=== PATIENT | male | born 1940 | race Caucasian/White ===

== ENCOUNTER 2016-12-19 20:33 | Inpatient (IN) | payer MEDICARE, OTHER ==
[~2016-12-19] VITALS: Ht 172.7 cm; Wt 68.3 kg
[~2016-12-19 20:33] MED LIST: ALPR1TAB3 PO; FOLI1TAB PO; HYDRO25 PO; MIRT30TA PO
[2016-12-19 23:34] VITALS: BP 125/63; PULSE 59; RESP 20; TEMP 98.7
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
[2016-12-20] VITALS (10 sets, daily range): BP systolic 119–165; BP diastolic 66–93; PULSE 59–109; RESP 18–21; TEMP 96.2–98.8; O2SAT 85–98
[2016-12-20] MEDS ORDERED: AZTREONAM INJ 2,000 MG in SODIUM CHLORIDE 0.9% INJ 100 ML IV STA (00:02)
[2016-12-20] MEDS ORDERED: AZITHROMYCIN INJ 500 MG in SODIUM CHLOR 0.9% 250 ML INJ 250 ML IV STA (00:02)
[2016-12-20 00:07] LABS: AUTOMATED NEUTROPHIL # 1.6 TH/MM3 (1.8-7.7); BASOPHIL % 0.2 % (0.0-2.0); EOSINOPHIL # 0.1 TH/MM3 (0-0.4); EOSINOPHIL % 1.7 % (0.0-4.0); HEMATOCRIT 32.2 % (39.0-51.0); HEMO FLAGS DIFF FINAL; LYMPH % 31.4 % (9.0-44.0); MEAN CELL VOLUME 92.8 FL (80.0-100.0); MEAN CORPUSCULAR HEMOGLOBIN 31.1 PG (27.0-34.0); MEAN CORPUSCULAR HGB CONC 33.5 % (32.0-36.0); MONO % 14.7 % (0.0-8.0); PLATELET COUNT 152 TH/MM3 (150-450); RED BLOOD COUNT 3.47 MIL/MM3 (4.50-5.90); RED CELL DISTRIBUTION WIDTH 15.7 % (11.6-17.2); WHITE BLOOD COUNT 3.1 TH/MM3 (4.0-11.0)
[2016-12-20] MEDS ORDERED: SODIUM CHLORIDE 0.9% FLUSH 10 ML FLUSH IVF PRN ×2 (00:15→02:30)
[2016-12-20] MEDS ORDERED: methylPREDNISolone SOD SUCC 125 MG/2 ML VIAL IVP ONE (00:15)
[2016-12-20] MEDS ORDERED: SODIUM CHLORID 0.9% 500 ML INJ 500 ML IV ONE (00:15)
[2016-12-20] MEDS: RESP: ALBUTEROL 2.5 MG/IPRATROPIUM 0.5 MG NEB (SCH) INH ×6 (00:16→21:53)
[2016-12-20 00:17] LABS: APTT (PATIENT) 33.6 SEC (24.3-30.1); INTERNATIONAL NORMALIZED RATIO 1.1 RATIO; PROTHROMBIN TIME - PATIENT 12.7 SEC (9.8-11.6)
[2016-12-20 00:21] LABS: ANION GAP 3 MEQ/L (5-15); AST (GOT) 23 U/L (15-37); BICARBONATE 36.2 MEQ/L (21.0-32.0); BLOOD UREA NITROGEN 9 MG/DL (7-18); CHLORIDE 91 MEQ/L (98-107); GLOMERULAR FILTRATION RATE 91 ML/MIN (>89); POTASSIUM 4.3 MEQ/L (3.5-5.1); SODIUM (NA) 130 MEQ/L (136-145)
[2016-12-20 00:22] LABS: ALT (GPT) 27 U/L (12-78)
--- NOTE | 2016-12-20 00:29 | RADRPT ---
EXAM DATE/TIME: 12/19/2016 23:50 [facility] COMPARISON: CHEST PA & LAT, November 12, 2010, 17:20. INDICATIONS : Shortness of breath, altered mental status. MEDICAL HISTORY : None. SURGICAL HISTORY : None. ENCOUNTER: Initial ACUITY: 1 day PAIN SCORE: 0/10 LOCATION: Bilateral chest FINDINGS: A single view of the chest demonstrates the lungs to be symmetrically aerated without evidence of mas s, infiltrate or effusion. The cardiomediastinal contours are unremarkable. Osseous structures are intact. CONCLUSION: Normal examination. Damian Rand MD on December 20, 2016 at 0:28 Board Certified Radiologist. This report was verified electronically.
[2016-12-20 00:31] LABS: ALKALINE PHOSPHATASE 49 U/L (45-117); CREATINE KINASE 118 U/L (39-308)
[2016-12-20 00:43] LABS: CKMB 4.7 NG/ML (0.5-3.6)
[2016-12-20 01:31] LABS: BLOOD, URINE NEG (NEG); COMMENT (UR) CULT NOT INDICATED; CULTURE IF INDICATED CULT NOT INDICATED; GLUCOSE,URINE NEG (NEG); KETONE, URINE NEG (NEG); NITRITE,URINE NEG (NEG); RENAL EPITHELIAL CELLS <1 /hpf; URINE COLOR YELLOW (YELLW/STRAW)
[2016-12-20] MEDS ORDERED: ACETAMINOPHEN 325 MG TAB PO PRN (02:30)
[2016-12-20] MEDS ORDERED: guaiFENesin/CODEINE SYRUP 200 MG/20 MG/10 ML CUP PO PRN (02:30)
[2016-12-20] MEDS ORDERED: SODIUM CHLOR 0.9% 1000 ML INJ 1,000 ML IV SCH (02:30)
[2016-12-20] MEDS ORDERED: RESP: ALBUTEROL 2.5 MG/IPRATROPIUM 0.5 MG NEB (PRN) INH (02:30)
[2016-12-20] MEDS ORDERED: RESP: ALBUTEROL 2.5 MG/3 ML NEB (PRN) INH (02:30)
[2016-12-20] MEDS ORDERED: ONDANSETRON HCL 4 MG/2 ML VIAL IV PRN (02:30)
[2016-12-20] MEDS: ENOXAPARIN SODIUM 40 MG/0.4 ML SYRINGE SQ SCH (03:55)
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
[2016-12-20] MEDS: SODIUM CHLORIDE 0.9% FLUSH 10 ML FLUSH IVF SCH ×2 (08:43→21:00)
[2016-12-20] MEDS: methylPREDNISolone SOD SUCC 125 MG/2 ML VIAL IV PUSH SCH ×2 (08:44→21:32)
[2016-12-20] MEDS ORDERED: FLUMAZENIL 0.5 MG/5 ML VIAL IV PUSH PRN (09:00)
[2016-12-20] MEDS ORDERED: LORazepam 2 MG/ML VIAL IV PUSH PRN ×4 (09:00)
[2016-12-20] MEDS ORDERED: FUROSEMIDE 40 MG/4 ML VIAL IV PUSH ONE (09:00)
[2016-12-20] MEDS ORDERED: LORazepam 2 MG TAB PO PRN (09:00)
[2016-12-20] MEDS ORDERED: predniSONE 20 MG TAB PO SCH (09:00)
[2016-12-20 10:28] LABS: AMPHETAMINE, URINE NEG (NEG); BARBITURATES, URINE NEG (NEG); COCAINE, URINE NEG (NEG)
[2016-12-20] MEDS: AZTREONAM INJ 2,000 MG in SODIUM CHLORIDE 0.9% INJ 100 ML IV SCH ×2 (10:40→17:35)
[2016-12-20 12:35] LABS: AUTOMATED NEUTROPHIL # 2.2 TH/MM3 (1.8-7.7); BASOPHIL % 0.1 % (0.0-2.0); HEMATOCRIT 39.1 % (39.0-51.0); HEMO FLAGS DIFF FINAL; LYMPH % 8.4 % (9.0-44.0); LYMPHOCYTE # 0.2 TH/MM3 (1.0-4.8); MEAN CELL VOLUME 94.3 FL (80.0-100.0); MEAN CORPUSCULAR HEMOGLOBIN 30.6 PG (27.0-34.0); MEAN CORPUSCULAR HGB CONC 32.4 % (32.0-36.0); MONO % 1.2 % (0.0-8.0); NEUT % 90.3 % (16.0-70.0); PLATELET COUNT 171 TH/MM3 (150-450); RED BLOOD COUNT 4.14 MIL/MM3 (4.50-5.90); RED CELL DISTRIBUTION WIDTH 15.6 % (11.6-17.2); WHITE BLOOD COUNT 2.4 TH/MM3 (4.0-11.0)
--- NOTE | 2016-12-20 12:51 | RADRPT ---
EXAM DATE/TIME: 12/20/2016 12:10 [facility] COMPARISON: CHEST SINGLE AP, December 19, 2016, 23:50. INDICATIONS : Short of Breath, Cough. MEDICAL HISTORY : None. SURGICAL HISTORY : None. ENCOUNTER: Initial ACUITY: 1 day PAIN SCORE: 0/10 LOCATION: Bilateral chest FINDINGS: There is right middle lobe consolidation and/or partial collapse not present previously. Multiple ant erior wedging of thoracic vertebrae is identified most likely osteoporotic. The rest of the examinati on has not significantly changed. CONCLUSION: Interval development of slight right middle lobe consolidation and/or partial collapse. Caprice Eastman MD on December 20, 2016 at 12:48 Board Certified Radiologist. This report was verified electronically.
[2016-12-20 13:26] LABS: BICARBONATE 33.7 MEQ/L (21.0-32.0); POTASSIUM 4.1 MEQ/L (3.5-5.1)
--- NOTE | 2016-12-20 14:04 | EKG ---
Date Performed: 12/19/2016 Time Performed: 23:56:54 PTAGE: 76 years EKG: SINUS BRADYCARDIA WITH OCCASIONAL SUPRAVENTRICULAR PREMATURE COMPLEXES BORDERLINE ECG Inder red to PREVIOUS TRACING , T-wave flattening is new, clinical correlation is recommended. PREVIOU S TRACIN11/10/2010 09.54 DOCTOR: Fransisco Good Interpretating Date/Time 12/20/2016 14:02:00
[2016-12-20] MEDS: LORazepam 1 MG TAB PO PRN (15:48)
[2016-12-20] MEDS ORDERED: AZITHROMYCIN 250 MG TAB PO SCH (22:00)
[2016-12-21] VITALS (8 sets, daily range): BP systolic 141–168; BP diastolic 76–86; PULSE 102–116; RESP 19–21; TEMP 96–98; O2SAT 91–95
[2016-12-21] MEDS: LORazepam 1 MG TAB PO PRN ×2 (02:00→02:05)
[2016-12-21] MEDS: AZTREONAM INJ 2,000 MG in SODIUM CHLORIDE 0.9% INJ 100 ML IV SCH (02:06)
[2016-12-21] MEDS: ENOXAPARIN SODIUM 40 MG/0.4 ML SYRINGE SQ SCH (02:07)
[2016-12-21] MEDS: RESP: ALBUTEROL 2.5 MG/IPRATROPIUM 0.5 MG NEB (SCH) INH ×4 (04:18→21:45)
[2016-12-21] MEDS ORDERED: ALPRAZolam 1 MG TAB PO ONE (08:30)
[2016-12-21] MEDS ORDERED: HALOPERIDOL LACTATE 5 MG/ML AMP IM PRN (08:30)
[2016-12-21] MEDS ORDERED: ENALAPRILAT 1.25 MG/ML VIAL IV PRN (08:30)
[2016-12-21] MEDS: SODIUM CHLORIDE 0.9% FLUSH 10 ML FLUSH IVF SCH ×2 (09:00→20:39)
[2016-12-21] MEDS: LEVOFLOXACIN 750 MG TAB PO SCH (10:32)
[2016-12-21] MEDS: DEXAMETHASONE 4 MG TAB PO SCH ×2 (10:32→20:39)
[2016-12-21 11:30] LABS: AUTOMATED NEUTROPHIL # 8.5 TH/MM3 (1.8-7.7); BASOPHIL % 0.1 % (0.0-2.0); HEMATOCRIT 33.5 % (39.0-51.0); HEMO FLAGS DIFF FINAL; LYMPH % 2.2 % (9.0-44.0); LYMPHOCYTE # 0.2 TH/MM3 (1.0-4.8); MEAN CORPUSCULAR HEMOGLOBIN 30.5 PG (27.0-34.0); MEAN CORPUSCULAR HGB CONC 33.1 % (32.0-36.0); MONO % 10.5 % (0.0-8.0); NEUT % 87.2 % (16.0-70.0); PLATELET COUNT 163 TH/MM3 (150-450); RED BLOOD COUNT 3.64 MIL/MM3 (4.50-5.90); RED CELL DISTRIBUTION WIDTH 15.4 % (11.6-17.2); WHITE BLOOD COUNT 9.8 TH/MM3 (4.0-11.0)
[2016-12-21 12:11] LABS: BICARBONATE 32.6 MEQ/L (21.0-32.0); POTASSIUM 3.8 MEQ/L (3.5-5.1)
[2016-12-21] MEDS ORDERED: SODIUM CHLOR 0.9% 1000 ML INJ 1,000 ML IV ONE (16:00)
--- NOTE | 2016-12-21 16:06 | HHI.FPPN ---
Subjective Remarks Renaldo Oliver is a 76yo gentleman with known COPD and long-standing benzodiazepine use who presented with worsening SOB, confusion, weakness. He is admitted for pneumonia assessment and treatment. Overnight, patient BP was tachycardic and hypertensive (in the 160/80s). Has been voiding appropriately and having regular bowel movements. In the morning, he became extremely agitated--pulling at IVs, refusing medications, and physically combating nurses. Security was called. Upon seeing patient, overall tremor was noted, predominantly in hands. Patient changed clothing three times ( from gown to home clothes). He spoke about the nurses "attacking him" and not trusting anything administered IV. He also spoke about obtaining benzodiazepines that "come in two's" and "taking as many" as he thinks he needs. Attempted to leave the hospital twice. Was verbally persuaded to his room and placed in restraints. Given haldol. (Natalee Bernal MD R1) Objective Vitals Vital Signs Date Time Temp Pulse Resp B/P Pulse Ox O2 Delivery O2 Flow Rate FiO2 12/21/16 13:58 93 Nasal Cannula 3.00 12/21/16 08:28 96.4 116 20 168/85 95 12/21/16 06:37 98.0 102 21 162/80 92 12/21/16 04:20 91 21 12/21/16 01:54 97.4 103 21 162/81 94 12/20/16 21:55 95 Nasal Cannula 2.00 12/20/16 21:25 96.6 109 21 165/93 93 12/20/16 17:02 96.2 94 18 128/66 98 I/O 12/20/16 12/20/16 12/20/16 12/21/16 12/21/16 12/21/16 07:00 15:00 23:00 07:00 15:00 23:00 Intake Total 500 ml 300 ml Output Total 350 ml Balance -350 ml 500 ml 300 ml Intake Oral 200 ml 200 ml IV Total 300 ml 100 ml Output Urine Total 350 ml # Voids 3 # Bowel Movements 1 (Natalee Bernal MD R1) Result Diagram: 12/21/16 1056 12/21/16 1056 Objective Remarks GENERAL: thin, elderly man walking around, agitated HEENT: NCAT, EOMI, no scleral icterus, no conjunctival injection. MMM. Nasal cannula in place. Edentulous. NECK: Supple, no meningeal signs. JVD noted. CV: RRR, S1 S2. 2/6 systolic murmur heard at LUSB. CHEST/PULM: Crackles at bases and coarse sounds throughout. End exp wheeze heard on Right lung. ABD/GI: +BS, soft, nontender, nondistended EXT: 1+ DP pulses. No calf tenderness. No significant edema. NEURO: Awake, alert. Normal muscle tone. Tremor noted in the upper extremities. SKIN: No rashes, no jaundice. PSYCH: Agitated, refusing medications. Limited exam due to uncooperative patient. (Natalee Bernal MD R1) A/P Assessment and Plan Patient is a 76-year-old man with a history of COPD on 2 L by Nasal Cannula at home admitted for SOB suspected to have COPD and CHF exacerbation (Natalee Bernal MD R1) Attending Attestation Patient seen, examined, and discussed with Dr. Bernal. I agree with assessment and management as documented and discussed with me. Pt increasingly agitated and confused today. He is ambulating the room. No obvious focal weakness. Security called as described above. During his agitation, he is noticed to be pursed lip breathing. However, O2 sat on room air after pacing is 95%. Pt refuses physical exam. Pt is observed to be tremulous in hands, but able to put on belt and belt clip. Pt reports he takes Xanax 1mg TID, and that "you can get two's if you have the money." Suspect patient has significant benzodiazepine use and suspect it is purchased from the street, as [facility] pharmacy (where he reports he gets rx's) has no record of medication since 2015 and patient with positive UDS for benzos dating back to 2008. Started Xanax 1mg PO Q8 hours, hold for sedation. Continue CIWA protocol. Suspect agitation/confusion secondary to alcohol vs benzo withdrawal. Greater than 60 minutes spent by me personally in the care and coordination for this patient. (Ruby Corral MD) Problem List: (1) Agitation requiring sedation protocol Status: Acute Plan: ETOH or benzo withdrawal v electrolyte disturbance v anxiety. Hx of chronic benzodiazepine street use. - CIWA of 13 this morning. Patient is hypertensive, tachycardic, and shivering. - Haldol given 1x - Sitter ordered - Xanax PRN - will con't to monitor and assess patient (2) Hyponatremia Status: Chronic Plan: Chronic. Improved with IV fluid (gentle) today: 1 bag NS 50 mls/hr Will monitor. (3) Pneumonia Status: Acute Plan: Concern for pneumonia based on CXR findings and physical exam. - Antibiotics switched to PO due to patient refusal of IV medications: levofloxacin 750 PO daily ordered - Legionella, pneumococcal urinary Ag negative - Blood culture: No growth in 2 days - Provide oxygen supplementation as needed. Of note, pt requires 2lpm by nasal cannula at home. - Start EZ PAP. (4) COPD with acute exacerbation Status: Acute Plan: Likely exacerbated by pneumonia - Pt with known COPD and with wheezes on exam. - Provide antibiotics, nebulizers, oxygen as needed/ordered. - Cx pending - Pt with prednisone allergy, ordered dexamethasone 4mg PO Q12H - con't to monitor daily vitals (5) CHF exacerbation Status: Acute Plan: Pt without known h/o CHF. However, BNP elevated (>500) and JVD present. Provide IV lasix x 1 today. Monitor Is/Os. Check 2d echo. (6) Alcohol abuse Status: Chronic Plan: - pt reports no use x 2 months. - CIWA protocol in place. - may be withdrawing due to episode of agitation this morning. Haldol 1x. Ativan PRN. (7) Neutropenia Status: Acute Plan: Unclear if acute or chronic. May be secondary to infection vs bone marrow suppression from chronic alcohol use. (8) Normocytic anemia Status: Chronic Plan: Hemodynamically stable. Unclear if acute or chronic. Will monitor. No obvious active bleeding. (9) FEN Status: Acute Plan: FEN: regular diet DVT prophy: Lovenox Code: FULL Dispo: next couple of days due to high suspicion of benzo/ETOH withdrawal (Natalee Bernal MD R1) Addendum to Inpatient Note Addendum Reason: Additional Documentation Additional Information Patient seen this afternoon. Nurse states he has shown improvement in tremor and is more cooperative. On exam, patient still appears agitated, complains of sore ankles and wrists at sites of soft restraints. No erythema, lesions, or skin irritation/ecchymosis noted at sites. Patient taking his medications PO. Lung sounds coarse bilaterally at the bases, poorer airflow in the left side. Patient states he has pain in legs as well and would like more benzos--states he takes 1 mg TID. Also reports he believes he will have diarrhea soon, seems to know he is withdrawing. Last Ativan provided at 2am. Xanax provided around 9am this morning. Still tachycardic, BP improved with medication. Due to continued agitation and hx of chronic benzo use (dose not known), suspect patient is in active withdrawal. Will provide 1 mg Xanax Q8H. Will evaluate patient in the morning and consider decreasing or holding. (Natalee Bernal MD R1) Natalee Bernal MD R1 Dec 21, 2016 16:05 Ruby Corral MD Dec 21, 2016 20:15
[2016-12-21] MEDS: ALPRAZolam 1 MG TAB PO SCH (18:27)
[2016-12-22] VITALS (7 sets, daily range): BP systolic 123–172; BP diastolic 59–89; PULSE 100–109; RESP 16–19; TEMP 96.6–98.5; O2SAT 90–96
[2016-12-22] MEDS: ALPRAZolam 1 MG TAB PO SCH ×2 (01:51→08:44)
[2016-12-22] MEDS: ENOXAPARIN SODIUM 40 MG/0.4 ML SYRINGE SQ SCH (01:52)
[2016-12-22] MEDS: RESP: ALBUTEROL 2.5 MG/IPRATROPIUM 0.5 MG NEB (SCH) INH ×4 (03:07→21:00)
[2016-12-22] MEDS: DEXAMETHASONE 4 MG TAB PO SCH ×2 (08:44→19:58)
[2016-12-22] MEDS: SODIUM CHLORIDE 0.9% FLUSH 10 ML FLUSH IVF SCH ×2 (08:44→20:01)
[2016-12-22] MEDS: LEVOFLOXACIN 750 MG TAB PO SCH (08:44)
[2016-12-22] MEDS ORDERED: GABA300C5 PO (09:08)
[2016-12-22] MEDS ORDERED: ALPR1TAB3 PO (09:08)
[2016-12-22] MEDS ORDERED: DOXE50CA3 PO (09:08)
--- NOTE | 2016-12-22 09:29 | HHI.FPPN ---
Subjective Remarks Patient had an episode of acute delirium yesterday. When asked about this episode of acute delirium, he reports that he was scared and doesn't remember yesterday's events. The delirium was thought to be due to benzodiazepine withdrawal. Called [facility] pharmacy this morning at [phone]. They reported that he was last prescribed gabapentin 3 mg 3 times a day in March 2016. In January 2016, patient was prescribed Xanax 1 mg 3 times a day And doxepin 50 mg daily at bedtime. The last time the patient had picked up any prescriptions was in February 2016 when he picked up the gabapentin and Xanax. Patient was also visited by his nephew Mason who came by to see him last night. Other than the events above, no acute events overnight. Overnight, patient had a low temperature ranging from 96.0-97.3, pulse range from 102-112, blood pressure ranged from 141-168/76-86, pulse ox ranged from 93-95% on 3 L nasal cannula. This morning, there is a sitter at bedside. Patient reports that his breathing is "coming along." Patient endorses some suprapubic tenderness as well as a little dysuria. Patient reports decreased wrist, ankle, and leg pain. (Parish Walker MD R1) Objective Vitals Vital Signs Date Time Temp Pulse Resp B/P Pulse Ox O2 Delivery O2 Flow Rate FiO2 12/22/16 07:44 93 21 12/22/16 00:00 96.6 102 19 168/81 94 12/21/16 21:46 93 Nasal Cannula 3.00 12/21/16 20:00 97.3 112 19 153/76 94 12/21/16 15:52 96.0 106 20 141/86 95 12/21/16 13:58 93 Nasal Cannula 3.00 I/O 12/21/16 12/21/16 12/21/16 12/22/16 12/22/16 12/22/16 07:00 15:00 23:00 07:00 15:00 23:00 Intake Total 1031 ml 386 ml Output Total 1850 ml 3450 ml 475 ml Balance -819 ml -3064 ml -475 ml Intake Oral 700 ml 240 ml IV Total 331 ml 146 ml Output Urine Total 1850 ml 3450 ml 475 ml # Voids 3 2 # Bowel Movements 1 (Parish Walker MD R1) Result Diagram: 12/21/16 1056 12/21/16 1056 Imaging Last Impressions Chest X-Ray 12/20/16 0000 Signed Impressions: Service Date/Time: Tuesday, December 20, 2016 12:10 - CONCLUSION: Interval development of slight right middle lobe consolidation and/or partial collapse. Caprice Eastman MD Objective Remarks GENERAL: thin, elderly man lying in bed, answering questions and responding appropriately with his eyes closed HEENT: NCAT, EOMI, no scleral icterus, no conjunctival injection. MMM. Nasal cannula in place. Edentulous. NECK: Supple, no meningeal signs. JVD noted. CV: RRR, normal S1 S2. CHEST/PULM: Crackles at bases R>L and coarse sounds throughout. End exp wheezes ABD/GI: soft, nontender, nondistended EXT: No calf tenderness. No significant edema. NEURO: Awake, alert. Normal muscle tone. SKIN: No rashes, no jaundice. PSYCH: Alert and oriented. Calm and cooperative. (Parish Walker MD R1) A/P Assessment and Plan Patient is a 76-year-old man with a history of COPD on 2 L/m Nasal Cannula at home admitted for SOB suspected to have COPD and CHF exacerbation and pneumonia Discharge Planning Anticipate discharge tomorrow pending continued clinical improvement in pneumonia, COPD exacerbation, CHF exacerbation, benzo/ETOH withdrawal (Parish Walker MD R1) Attending Attestation Patient seen and examined, discussed with resident team. I agree with assessment and management as documented and discussed with me. Pt is more calm today. Soft restraints removed overnight. Sitter reports no concerns. Breathing has improved. Possible discharge tomorrow, pending clinical improvement in agitation and breathing, which are both improving. Await echo. (Ruby Corral MD) Problem List: (1) Pneumonia Status: Acute Plan: Concern for pneumonia based on CXR findings and physical exam. - Antibiotics switched to PO due to patient refusal of IV medications yesterday : levofloxacin 750 PO daily ordered - Legionella, pneumococcal urinary Ag negative - Blood culture: No growth in 2 days. Repeat blood cultures show no growth in 1 day. - Provide oxygen supplementation as needed. Of note, pt requires 2lpm by nasal cannula at home. - Start EZ PAP. (2) COPD with acute exacerbation Status: Acute Plan: Likely exacerbated by pneumonia - Pt with known COPD and with wheezes on exam. - Provide antibiotics, nebulizers, oxygen as needed/ordered. - Cx negative so far with no growth to date - Pt with prednisone allergy, ordered dexamethasone 4mg PO Q12H - con't to monitor daily vitals (3) Agitation requiring sedation protocol Status: Acute Plan: ETOH or benzo withdrawal v electrolyte disturbance v anxiety. Hx of chronic benzodiazepine street use. - Patient is still hypertensive and tachycardic, but clinically much improved. - Sitter ordered - Patient has only required 1 dose of Haldol yesterday morning - Xanax per [facility] protocol. Continue home medication of alprazolam 1 mg 3 times a day. Continue other home medications of gabapentin and doxepin - will con't to monitor and assess patient (4) Hyponatremia Status: Chronic Plan: Chronic. Improved with IV fluid (gentle) today: 1 bag NS 50 mls/hr Will monitor: Sodium trend: 130, 134, 131 today (5) CHF exacerbation Status: Acute Plan: Pt without known h/o CHF. However, BNP elevated (>500) and JVD present. Patient given IV lasix x 1 yesterday, with 5.3 L of urine output for a net loss of 3.88 L. Will continue to Monitor Is/Os. Check 2d echo: Still pending (6) Dysuria Status: Acute Plan: Patient reports of little bit of dysuria as well as some suprapubic tenderness this morning. UA Patient already on Levaquin, which should treat most possible UTIs Last UA from 12/20 negative for infection, reassuring (7) Alcohol abuse Status: Chronic Plan: - pt reports no use x 2 months. - [facility] protocol in place. - may be withdrawing from benzodiazepines due to episode of agitation yesterday morning, for which patient was given Haldol 1x, Ativan PRN. (8) Neutropenia Status: Resolved Plan: Resolved. WBC trend: 3.1, 2.4, 9.8 today. Unclear etiology. May be secondary to infection vs bone marrow suppression from chronic alcohol use. (9) Normocytic anemia Status: Chronic Plan: Hemodynamically stable. Unclear if acute or chronic. Will monitor. No obvious active bleeding. (10) FEN Status: Acute Plan: FEN: regular diet DVT prophy: Lovenox Code: FULL Dispo: Anticipate discharge tomorrow pending continued clinical improvement in pneumonia, COPD exacerbation, CHF exacerbation, benzo/ETOH withdrawal (Parish Walker MD R1) Parish Walker MD R1 Dec 22, 2016 09:29 Ruby Corral MD Dec 22, 2016 16:24
[2016-12-22] MEDS ORDERED: GABAPENTIN 300 MG CAP PO SCH (13:00)
[2016-12-22 13:52] LABS: AUTOMATED NEUTROPHIL # 6.9 TH/MM3 (1.8-7.7); HEMATOCRIT 34.1 % (39.0-51.0); HEMO FLAGS DIFF FINAL; LYMPHOCYTE # 0.1 TH/MM3 (1.0-4.8); MEAN CELL VOLUME 92.3 FL (80.0-100.0); MEAN CORPUSCULAR HEMOGLOBIN 31.1 PG (27.0-34.0); MEAN CORPUSCULAR HGB CONC 33.7 % (32.0-36.0); MONO % 5.2 % (0.0-8.0); NEUT % 92.8 % (16.0-70.0); PLATELET COUNT 174 TH/MM3 (150-450); RED CELL DISTRIBUTION WIDTH 15.4 % (11.6-17.2); WHITE BLOOD COUNT 7.4 TH/MM3 (4.0-11.0)
[2016-12-22 14:18] LABS: POTASSIUM 4.1 MEQ/L (3.5-5.1)
--- NOTE | 2016-12-22 19:16 | ECHRPT ---
Indication: Cardiomyopathy, unspecified CONCLUSIONS The left ventricular systolic function is low normal with an estimated ejection fraction in the rang e of 50- 55%. MAC, calcification of both mitral valve leaflets. There is mild tricuspid valve regurgitation. The estimated pulmonary arterial pressure is 32 mmHg. BP: 119 / 74 HR: 107 Rhythm: Sinus MEASUREMENTS (Male / Female) Normal Values Technical Quality:Very technically difficult study 2D ECHO LV Diastolic Diameter PLAX 4.4 cm 4.2 - 5.9 / 3.9 - 5.3 cm LV Systolic Diameter PLAX 3.5 cm IVS Diastolic Thickness 0.9 cm 0.6 - 1.0 / 0.6 - 0.9 cm LVPW Diastolic Thickness 0.9 cm 0.6 - 1.0 / 0.6 - 0.9 cm LV Relative Wall Thickness 0.4 DOPPLER Mitral E Point Velocity 53.3 cm/s Mitral A Point Velocity 64.2 cm/s Mitral E to A Ratio 0.8 TR Peak Velocity 235.0 cm/s TR Peak Gradient 22.1 mmHg FINDINGS LEFT VENTRICLE The left ventricular systolic function is low normal with an estimated ejection fraction in the rang e of 50- 55%. RIGHT VENTRICLE Normal right ventricular size and systolic function. LEFT ATRIUM The left atrial size is normal. RIGHT ATRIUM The right atrial size is normal. ATRIAL SEPTUM Normal atrial septal thickness without atrial level shunting by limited color doppler interrogation. AORTA The aortic root and proximal ascending aorta are normal in size on limited imaging. MITRAL VALVE Calcification of both mitral valve leaflets. AORTIC VALVE Trileaflet aortic valve. No aortic valve stenosis or regurgitation. TRICUSPID VALVE There is mild tricuspid valve regurgitation. The estimated pulmonary arterial pressure is 32 mmHg. PULMONARY VALVE The pulmonary valve is not well visualized. VESSELS The inferior vena cava is normal in size. PERICARDIUM No pericardial effusion. Maris Leary MD, FACC (Electronically Signed) Final Date:22 December 2016 19:14
[2016-12-22] MEDS: ALPRAZolam 1 MG TAB PO PRN (19:58)
[2016-12-22 20:15] LABS: BLOOD, URINE NEG (NEG); COMMENT (UR) CULT NOT INDICATED; CULTURE IF INDICATED CULT NOT INDICATED; GLUCOSE,URINE NEG (NEG); KETONE, URINE NEG (NEG); NITRITE,URINE NEG (NEG); URINE COLOR YELLOW (YELLW/STRAW)
[2016-12-22] MEDS ORDERED: DOXEPIN HCL 50 MG CAP PO SCH (21:00)
[2016-12-23] VITALS: BP 144/71; PULSE 94; RESP 17; TEMP 98.3; O2SAT 94
[2016-12-23] MEDS: ENOXAPARIN SODIUM 40 MG/0.4 ML SYRINGE SQ SCH (02:30)
[2016-12-23] MEDS: RESP: ALBUTEROL 2.5 MG/IPRATROPIUM 0.5 MG NEB (SCH) INH ×2 (03:29→08:39)
[2016-12-23 07:48] LABS: AUTOMATED NEUTROPHIL # 6.9 TH/MM3 (1.8-7.7); HEMATOCRIT 35.4 % (39.0-51.0); HEMO FLAGS DIFF FINAL; LYMPH % 4.4 % (9.0-44.0); LYMPHOCYTE # 0.3 TH/MM3 (1.0-4.8); MEAN CELL VOLUME 92.7 FL (80.0-100.0); MEAN CORPUSCULAR HEMOGLOBIN 30.3 PG (27.0-34.0); MEAN CORPUSCULAR HGB CONC 32.7 % (32.0-36.0); MONO % 6.7 % (0.0-8.0); NEUT % 88.9 % (16.0-70.0); PLATELET COUNT 164 TH/MM3 (150-450); RED BLOOD COUNT 3.82 MIL/MM3 (4.50-5.90); RED CELL DISTRIBUTION WIDTH 15.1 % (11.6-17.2); WHITE BLOOD COUNT 7.8 TH/MM3 (4.0-11.0)
[2016-12-23 08:00] VITALS: BP 141/74; PULSE 96; RESP 15; TEMP 97.2; O2SAT 95
[2016-12-23 08:02] LABS: BICARBONATE 30.5 MEQ/L (21.0-32.0); POTASSIUM 4.1 MEQ/L (3.5-5.1)
[2016-12-23] MEDS: DEXAMETHASONE 4 MG TAB PO SCH (08:34)
[2016-12-23] MEDS: LEVOFLOXACIN 750 MG TAB PO SCH (08:34)
[2016-12-23] MEDS: SODIUM CHLORIDE 0.9% FLUSH 10 ML FLUSH IVF SCH (08:35)
[2016-12-23] MEDS: ALPRAZolam 1 MG TAB PO PRN ×2 (08:35→15:09)
[2016-12-23 08:40] VITALS: O2SAT 96
--- NOTE | 2016-12-23 09:10 | HHI.FPPN ---
Subjective Remarks No acute events overnight. Overnight, Patient has had an elevated heart rate ranging from 94-109, blood pressure ranging from 125-172/59-89, pulse ox 94-96% on 2 L nasal cannula. Patient reports chief complaint of wrist and ankle pain. He reports that his breathing is much improved. He denies any chest pain or shortness of breath. Patient reports that he is able to lie flat without any dyspnea. He denies any cough or fever. (Parish Walker MD R1) Objective Vitals Vital Signs Date Time Temp Pulse Resp B/P Pulse Ox O2 Delivery O2 Flow Rate FiO2 12/23/16 08:40 96 Nasal Cannula 2.00 12/23/16 08:00 97.2 96 15 141/74 95 12/23/16 00:00 98.3 94 17 144/71 94 12/22/16 20:00 98.5 109 17 172/89 95 12/22/16 16:00 97.4 100 16 125/59 94 12/22/16 15:15 96 Nasal Cannula 2.00 12/22/16 12:00 97.9 102 16 123/62 93 I/O 12/22/16 12/22/16 12/22/16 12/23/16 12/23/16 12/23/16 07:00 15:00 23:00 07:00 15:00 23:00 Intake Total 386 ml 240 ml 240 ml 240 ml Output Total 3450 ml 475 ml 450 ml 450 ml Balance -3064 ml -235 ml -210 ml -210 ml Intake Oral 240 ml 240 ml 240 ml 240 ml IV Total 146 ml 0 ml Output Urine Total 3450 ml 475 ml 450 ml 450 ml # Voids 2 # Bowel Movements 0 (Parish Walker MD R1) Result Diagram: 12/23/1672112/23/16721 Imaging Last Impressions Chest X-Ray 12/20/16 0000 Signed Impressions: Service Date/Time: Tuesday, December 20, 2016 12:10 - CONCLUSION: Interval development of slight right middle lobe consolidation and/or partial collapse. Caprice Eastman MD Objective Remarks GENERAL: thin, elderly man lying in bed, answering questions and responding appropriately with his eyes mostly closed HEENT: NCAT, EOMI, no scleral icterus, no conjunctival injection. MMM. Nasal cannula in place to 2 L/m. Edentulous. NECK: Supple, no meningeal signs. JVP noted. CV: RRR, normal S1 S2. CHEST/PULM: Clear to auscultation bilaterally. No wheezes, rales or rhonchi ABD/GI: soft, nontender, nondistended EXT: No calf tenderness. No significant edema. MSK: Patient with 5 out of 5 strength of flexion and plantar flexion bilaterally. Patient with 5 out of 5 strength of wrist flexion and extension bilaterally. 5 out of 5 strength of upper extremities. NEURO: Awake, alert. Normal muscle tone. SKIN: No rashes, no jaundice. PSYCH: Alert and oriented. Calm and cooperative. (Parish Walker MD R1) A/P Assessment and Plan Patient is a 76-year-old man with a history of COPD on 2 L/m Nasal Cannula at home admitted for SOB suspected to have COPD exacerbation and pneumonia. Discharge Planning Anticipate discharge today pending continued clinical improvement in pneumonia, COPD exacerbation, ambulation. (Parish Walker MD R1) Attending Attestation Patient seen, examined, and discussed with resident team. I agree with assessment and management as documented and discussed with me. Mr. Oliver is back to baseline. Lungs clear on exam. He is maintaining O2 sats on his home oxygen level of 2lpm. He reports that he has a walker at home. He reports he is able to get food from the grocery store across the street and he prepares his own meals. He would welcome home health. Discharge home today/ (Ruby Corral MD) Problem List: (1) Pneumonia Status: Acute Plan: Concern for pneumonia based on CXR findings and physical exam. Patient treated with aztreonam and azithromycin starting on 12/20. Switched to Levaquin on 12/21. Thus, patient is on day 4 of antibiotics. Will d/c on one more day. - Plan to discharge patient on 5 day course - Legionella, pneumococcal urinary Ag negative - Blood culture: No growth in 3 days. Repeat blood cultures show no growth in 2 days. - Provide oxygen supplementation as needed. Of note, pt requires 2lpm by nasal cannula at home. - EZ PAP. (2) COPD with acute exacerbation Status: Acute Plan: Likely exacerbated by pneumonia - Pt with known COPD and with wheezes on exam. - Provide antibiotics, nebulizers, oxygen as needed/ordered. - Cx negative so far with no growth to date - Pt with prednisone allergy, ordered dexamethasone 4mg PO Q12H - con't to monitor daily vitals - plan to d/c on steroids, inhalers, nebs (3) Agitation requiring sedation protocol Status: Acute Plan: ETOH or benzo withdrawal v electrolyte disturbance v anxiety. Hx of chronic benzodiazepine street use. - Patient is still hypertensive and tachycardic, but clinically much improved. - Sitter d/c'd - Patient has only required 1 dose of Haldol this admission - Xanax per [facility] protocol. Continue home medication of alprazolam 1 mg 3 times a day. Continue other home medications of gabapentin and doxepin - will con't to monitor and assess patient (4) Hyponatremia Status: Chronic Plan: Chronic. Improved with IV fluid (gentle) today: 1 bag NS 50 mls/hr Will monitor: Sodium trend: 130, 134, 131, 129 today (5) CHF exacerbation Status: Acute Plan: Pt without known h/o CHF. However, BNP elevated (>500) and JVD/JVP present. - continue to Monitor Is/Os: still net negative Echo: EF 50-55%, MAC, calcification of both mitral valve leaflets, mild tricuspid valve regurgitation, estimated pulmonary arterial pressure is 32 mmHg (6) Dysuria Status: Acute Plan: Patient reports of little bit of dysuria as well as some suprapubic tenderness this morning. UA wnl Patient already on Levaquin, which should treat most possible UTIs Last UA from 12/20 negative for infection, reassuring (7) Alcohol abuse Status: Chronic Plan: - pt reports no use x 2 months. - [facility] protocol in place. - may have been withdrawing from benzodiazepines due to episode of agitation this admission (8) Neutropenia Status: Resolved Plan: Resolved. WBC trend: 3.1, 2.4, 9.8 today. Unclear etiology. May be secondary to infection vs bone marrow suppression from chronic alcohol use. (9) Normocytic anemia Status: Chronic Plan: Hemodynamically stable. Unclear if acute or chronic. Will monitor. No obvious active bleeding. (10) FEN Status: Acute Plan: FEN: regular diet DVT prophy: Lovenox Code: FULL Dispo: Anticipate discharge today pending continued clinical improvement in pneumonia, COPD exacerbation, ambulation (Parish Walker MD R1) Parish Walker MD R1 Dec 23, 2016 09:10 Ruby Corral MD Dec 23, 2016 21:13
[2016-12-23] MEDS ORDERED: IPRASOL INH (10:59)
[2016-12-23] MEDS ORDERED: ALBU0.08 INH (10:59)
[2016-12-23] MEDS ORDERED: ALBUAER3 INH (10:59)
[2016-12-23] MEDS ORDERED: NEBULIZER1 MI1 (10:59)
[2016-12-23] MEDS ORDERED: NEBULIZER/ADULT1 KIT (10:59)
[2016-12-23] MEDS ORDERED: LEVA750T9 PO (10:59)
[2016-12-23] MEDS ORDERED: TIOT12.9 INH (10:59)
[2016-12-23] MEDS ORDERED: DEXA4TAB PO ×2 (10:59→14:05)
--- NOTE | 2016-12-23 11:02 | HHI.FF ---
Face to Face Verification Diagnosis: (1) COPD with acute exacerbation (2) Pneumonia Physical Therapy Order: Evaluate and Treat, Improve ambulation, Strength and gait training Home Health Nursing Order: Medical education Signs/symptoms of disease process Oxygen administration education Medication education-adverse effect Nursing assessment with vital signs I have seen patient Renaldo Oliver on 12/23/16. My clinical findings support the need for the requested home health care services because: Ltd mobility - disease progression Patient has SOB Deconditioned w/ increased weakness Med compliance is questionable Limited ability to care for self High risk of falls Infection w/ risk of complications I certify that my clinical findings support that this patient is homebound because: Impaired cognitive ability/safety Hx COPD- exertion dyspnea/weakness Unsteady gait/balance Parish Walker MD R1 Dec 23, 2016 11:02
--- NOTE | 2016-12-23 11:03 | HHI.DCPOC ---
Discharge Care Plan Diagnosis: (1) Pneumonia (2) COPD with acute exacerbation Goals to Promote Your Health * To prevent worsening of your condition and complications, please take medications as prescribed. * To maintain your health at the optimal level, please follow up with your doctor as instructed. Directions to Meet Your Goals Take your medications as prescribed Follow your dietary instruction Follow activity as directed Keep your appointments as scheduled Take your immunizations and boosters as scheduled If your symptoms worsen call your PCP, if no PCP go to Urgent Care Center or Emergency Room Smoking is Dangerous to Your Health. Avoid second hand smoke Call the 24-hour hour crisis hotline for domestic abuse at Parish Walker MD R1 Dec 23, 2016 11:03
[2016-12-23 12:00] VITALS: BP 133/74; PULSE 101; RESP 17; TEMP 98.1; O2SAT 94
[2016-12-23] MEDS ORDERED: NEBUKIT5 (12:04)
[2016-12-23] MEDS ORDERED: SYMB160A INH (12:09)
== END 2016-12-23 15:29 | disposition home or self-care (01) | DRG 190 ==
LOC: NEDAMB 20:33 → NEDA 12-20 01:54 → N05A 12-20 03:30 → N07B 12-21 18:18
PROVIDERS: ADMIT Family Medicine; ATTEND Family Medicine
DX: J44.0 Chronic obstructive pulmonary disease with (acute) lower respiratory infection (principal); J18.9 Pneumonia, unspecified organism; I11.0 Hypertensive heart disease with heart failure; F03.90 Unspecified dementia, unspecified severity, without behavioral disturbance, psychotic disturbance, mood disturbance, and anxiety; E87.1 Hypo-osmolality and hyponatremia; I50.9 Heart failure, unspecified; Z99.81 Dependence on supplemental oxygen; F10.239 Alcohol dependence with withdrawal, unspecified; F13.239 Sedative, hypnotic or anxiolytic dependence with withdrawal, unspecified; J44.1 Chronic obstructive pulmonary disease with (acute) exacerbation; F32.9 Major depressive disorder, single episode, unspecified; D64.9 Anemia, unspecified; F41.9 Anxiety disorder, unspecified; L40.9 Psoriasis, unspecified; I07.1 Rheumatic tricuspid insufficiency; F17.290 Nicotine dependence, other tobacco product, uncomplicated; I49.1 Atrial premature depolarization; Z88.0 Allergy status to penicillin; Z88.8 Allergy status to other drugs, medicaments and biological substances; Z78.1 Physical restraint status
CPT/HCPCS: 71010; 71020; 80048; 80053; 80307; 81001; 82550; 82552; 83605; 83690; 83735; 83880; 84443; 84484; 85025; 85610; 85730; 86140; 87040; 87449; 93005; 93306; 94150; 94640; 94664; 94667; 94668; 96365; 96375; J0456; J1630; J1650; J1940; J2060; J2930; J7030; J7040; J7050; J8540; P9612